=== PATIENT | male | born 1955 | race Caucasian/White ===

== ENCOUNTER → 2019-01-07 | Outpatient (CLI) | payer BC ==
[2014-04-23 10:10] VITALS: BP 130/82
[~2019-01-07] MED LIST: AUGMENTIN 125 M1 CTB; CYCLOBENZAPRINE10 MG PO; GABAPENTIN TAB600 MG PO; MELOXICAM7.5 MG PO; ZANTAC 150150 MG PO; ZOFRAN ODT8 MG PO
== END ==
LOC: RAD 15:15
DX: C69.02 Malignant neoplasm of left conjunctiva (principal); I67.82 Cerebral ischemia; Z97.0 Presence of artificial eye; R60.9 Edema, unspecified
CPT/HCPCS: A9585

== ENCOUNTER → 2020-07-09 | Outpatient (CLI) | payer BC ==
[2020-03-22 09:31] VITALS: BP 138/96
[~2020-07-09] MED LIST changes: +CYCLOBENZAPRINE10 M1 PO; +GABAPENTIN100 MG PO; +PANTOPRAZOLE SO40 MG PO; +PREMIERPRO RX5 MG/GM OP
== END ==
LOC: RAD 15:30
DX: M75.121 Complete rotator cuff tear or rupture of right shoulder, not specified as traumatic (principal); M19.011 Primary osteoarthritis, right shoulder

== ENCOUNTER → 2021-01-27 | Day surgery (SDC) | payer BC | END | disposition home or self-care (01) | LOC: MSO 07:00 | DX: H25.11 Age-related nuclear cataract, right eye (principal); H04.121 Dry eye syndrome of right lacrimal gland; Z79.82 Long term (current) use of aspirin | CPT/HCPCS: 00142; J0171; J2250; V2632 ==

== ENCOUNTER → 2023-06-08 | Outpatient (CLI) | payer MEDICARE, BC | LOC: RAD 15:00 | DX: M16.0 Bilateral primary osteoarthritis of hip (principal) ==